=== PATIENT | male | born 1960 | race Caucasian/White ===

== ENCOUNTER 2018-09-02 14:55 | Outpatient (CLI) | payer BC, SELFPAY ==
--- NOTE | 2018-09-02 15:19 | DI.RAD_ITS ---
SYMPTOMS/DIAGNOSIS: CHEST PAIN X A COUPLE OF DAYS, R07.9, EXERTIONAL DYSPNEA, R06.09 CHEST X-RAY, PA AND LATERAL: No priors. The heart is normal in size. The lungs are clear. The mediastinal structures and pleura appear intact. IMPRESSION: Normal chest.
[2018-09-02 15:39] LABS: NT-proBNP 47 pg/mL
[2018-09-02 15:40] LABS: Troponin I < 0.02 ng/mL (0.00-0.06)
[2018-09-02 15:49] LABS: D-Dimer 122 ng/mlFEU (<500)
== END 2018-09-02 15:15 ==
PROVIDERS: PCP Nurse Practitioner; Visit Provider Nurse Practitioner
DX: R07.9 Chest pain, unspecified (principal); R06.09 Other forms of dyspnea
CPT/HCPCS: 36415; 71046; 83880; 84484; 85379

== ENCOUNTER 2018-09-09 00:32 | Outpatient (CLI) | payer BC, SELFPAY ==
--- NOTE | 2018-09-09 09:00 | MERGE_ITS ---
*[facility]* * Cardiology* [address] [place] [address] Date of study: 09/09/2018 Transthoracic Echocardiography M-mode, complete 2D, complete spectral Doppler, and color Doppler *STUDY CONCLUSIONS* Summary: 1. Left ventricle: The cavity size was normal. Wall thickness was normal. Systolic function was normal. The estimated ejection fraction was 55-60%. Wall motion was normal; there were no regional wall motion abnormalities. 2. Right ventricle: The cavity size was normal. Systolic function was normal. 3. Inferior vena cava: The vessel was patent and normal in size. The respirophasic diameter changes were in the normal range (greater than or equal to 50%), consistent with normal central venous pressure. *PATIENT PRESENTATION* Height: 188cm ((74in) ) S/D Pressure: 140 / 81 Weight: 103kg ((226.5lb) ) BSA: 2.34m^2 Test start time: 09:00 AM. Test stop time: 10:00 AM. PERFORMING [facility] ETHICS MANAGER RT Tim (Joel)(CT), RDCS ORDERING Ashley Yost REFERRING Ashley Yost *PROCEDURE DATA* Procedure information: The patient was identified by two identifiers. This study was interpreted by [facility] Cardiology. Pertinent images and digital data are archived for permanent storage and are available for subsequent review. No prior study was available for comparison. Study status: Routine. Transthoracic echocardiography. M-mode, complete 2D, complete spectral Doppler, and color Doppler. A Transthoracic Echocardiogram was performed. Scanning was performed from the parasternal, apical, subcostal, and suprasternal notch acoustic windows. Images were obtained using an [id number] cardiac ultrasound machine. Image quality was adequate. Study completion: The patient tolerated the procedure well. There were no complications. History: PMH: Dyspnea on exertion. chest pain. *CARDIAC ANATOMY* Left ventricle: The cavity size was normal. Wall thickness was normal. Systolic function was normal. The estimated ejection fraction was 55-60%. Wall motion was normal; there were no regional wall motion abnormalities. Aortic valve: Trileaflet; normal thickness leaflets. Mobility was not restricted. Doppler: Transvalvular velocity was within the normal range. There was no stenosis. There was no significant regurgitation. VTI ratio of LVOT to aortic valve: 0.71. Valve area (VTI): 2.6cm^2. Indexed valve area (VTI): 1.1cm^2/m^2. Peak velocity ratio of LVOT to aortic valve: 0.75. Valve area (Vmax): 2.7cm^2. Indexed valve area (Vmax): 1.2cm^2/m^2. Mean velocity ratio of LVOT to aortic valve: 0.71. Valve area (Vmean): 2.6cm^2. Indexed valve area (Vmean): 1.1cm^2/m^2. Mean gradient (S): 4.5mm Hg. Peak gradient (S): 7.5mm Hg. Aorta: Aortic root: The aortic root was normal in size. Ascending aorta: The ascending aorta was normal in size. Mitral valve: Mildly thickened leaflets. Mobility was not restricted. Doppler: Transvalvular velocity was within the normal range. There was no evidence for stenosis. There was mild regurgitation. Valve area by pressure half-time: 4cm^2. Indexed valve area by pressure half-time: 1.7cm^2/m^2. Left atrium: The atrium was at the upper limits of normal in size. Right ventricle: The cavity size was normal. Systolic function was normal. Pulmonic valve: The pulmonary valve appears to be grossly normal. Doppler: Transvalvular velocity was within the normal range. There was no evidence for stenosis. There was mild regurgitation. Tricuspid valve: Structurally normal valve. Doppler: Transvalvular velocity was within the normal range. There was no evidence for stenosis. There was mild regurgitation. Pulmonary artery: The main pulmonary artery was normal-sized. Pulmonary systolic pressure was within the normal range, in the range of 25mm Hg to 30mm Hg. Right atrium: The atrium was normal in size. Pericardium: There was no pericardial effusion. Systemic veins: Inferior vena cava: Well visualized. The vessel was patent and normal in size. The respirophasic diameter changes were in the normal range (greater than or equal to 50%), consistent with normal central venous pressure. Baseline ECG: Bradycardia. Measurements Left ventricle Value Reference LV ID, ED, PLAX 5.4 cm 3.5 - 6.0 LV ID, ES, PLAX 3.5 cm 2.1 - 4.0 LV PW thickness, ED, PLAX 1.0 cm LV end-diastolic volume, 1-p A2C 94 ml LV ejection fraction, 1-p A2C 65 % LV end-diastolic volume, 1-p A4C 97 ml LV ejection fraction, 1-p A4C 55 % LV e', lateral 0.127 m/sec LV E/e', lateral 5 LV e', medial 0.09 m/sec LV E/e', medial 8 LV e', average 0.109 m/sec LV E/e', average 6 Ventricular septum Value Reference IVS thickness, ED, PLAX 0.9 cm LVOT Value Reference LVOT ID, A-P 2.2 cm LVOT area 3.6 cm^2 LVOT peak velocity, S 1.03 m/sec LVOT mean velocity, S 0.73 m/sec LVOT VTI, S 25.6 cm LVOT peak gradient, S 4.3 mm Hg LVOT mean gradient, S 2.4 mm Hg Stroke volume (SV), LVOT DP 93 ml Stroke index (SV/bsa), LVOT DP 40 ml/m^2 Aortic valve Value Reference Aortic valve peak velocity, S 1.4 m/sec Aortic valve mean velocity, S 1.03 m/sec Aortic valve VTI, S 36.0 cm Aortic mean gradient, S 4.5 mm Hg Aortic peak gradient, S 7.5 mm Hg VTI ratio, LVOT/AV 0.71 Aortic valve area, VTI 2.6 cm^2 Velocity ratio, peak, LVOT/AV 0.75 Aortic valve area, peak velocity 2.7 cm^2 Velocity ratio, mean, LVOT/AV 0.71 Aortic valve area, mean velocity 2.6 cm^2 Aortic valve area/bsa, mean velocity 1.1 cm^2/m^2 Aorta Value Reference Aortic root ID, ED 3.6 cm Ascending aorta ID, A-P, S 3.5 cm Left atrium Value Reference LA ID, A-P, ES 3.9 cm LA ID/bsa, A-P 1.6 cm/m^2 <=2.2 LA area, ES, A4C (H) 24.1 cm^2 8.8 - 23.4 LA area, ES, A2C 21 cm^2 LA volume/bsa, ES, 1-p A4C 34 ml/m^2 LA volume, ES, 2-p 71 ml LA volume/bsa, ES, 2-p 31 ml/m^2 LA/aortic root ratio 1.07 Mitral valve Value Reference Mitral E-wave peak velocity 0.69 m/sec Mitral A-wave peak velocity 0.51 m/sec Mitral deceleration time 189 ms 150 - 230 Mitral pressure half-time 55 ms Mitral E/A ratio, peak 1.36 Mitral valve area, PHT, DP 4 cm^2 Pulmonary veins Value Reference Pulmonary vein peak velocity, S 0.83 m/sec Pulmonary vein peak velocity, D 0.54 m/sec Pulmonary vein velocity ratio, peak, 1.53 S/D Pulmonary vein A-wave reversal peak 0.31 m/sec velocity Pulmonary vein A-wave reversal 204 ms duration Tricuspid valve Value Reference Tricuspid regurg peak velocity 2.9 m/sec Tricuspid peak RV-RA gradient 33.8 mm Hg Right atrium Value Reference RA area, ES, A4C 16.1 cm^2 8.3 - 19.5 Legend: (L) and (H) josias values outside specified reference range. I have personally reviewed the images and have reviewed and edited the reported findings. Electronically signed by Sonido Crabtree 09/09/2018 10:42
--- NOTE | 2018-09-09 10:30 | ETT_ITS ---
*[facility]* *[facility]* [address] [place] [address] Stress Electrocardiography Kendrick protocol Date of study: 09/09/2018 *PATIENT PRESENTATION* Height: 188cm (74in) Blood Pressure: Weight: 103.2kg (227lb) BSA: 2.34m^2 Referring physician: Ashley Yost Ordering physician: Ashley Yost Impressions: Normal study after maximal exercise. Summary: 1. Stress: The target heart rate was achieved. Indication: R07.9 R06.09. History: REASON FOR TESTING: INCREASED SHORTNESS OF BREATH WITH ACTIVITY OVER THE LAST 6 MONTHS AND 2 EPISODES CHEST PAINS SINCE . WHILE DRIVING HOME FROM WORK PATIENT EXPERIENCED TREMENDOUS CHEST PRESSURE, 6 OUT OF 10, HE DESCRIBES RADIATING FROM ABDOMEN TO UPPER NECK AREA AND DOWN TO HIS LEFT SHOULDER. CHEST PRESSURE OCCURED AGAIN A WEEK AND A HALF LATER THIS TIME IT HAD WOKEN HIM FROM SLEEP. BOTH EPISODES LASTED APPOXIMEATELY 15-20 MINUTES. PAST MEDICAL HISTORY: HYPERTENSION AND HYPERLIPIDEMIA. FAMILY HISTORY: BROTHER HYPERTENSION, FATHER HYPERTENSION. SMOKING STATUS: NEVER. EXERCISE ROUTINE: DAILY ADL'S. Risk factors: Family history of coronary artery disease. Hypertension. Dyslipidemia. Cholesterol: 207mg/dl. HDL: 38mg/dl. LDL: 118mg/dl. Triglycerides: 308mg/dl. ALLERGIES: CANTALOUPE AND PINEAPPLE. MEDICATIONS: METOPROLOL TARTRATE 100 MG BID, ADVIL 200 MG PRN, METAMUCIL 0.52 GM BID, MULTIPLE VITAMIN DAILY, LISINOPRIL 10 MG DAILY. Protocol: Kendrick protocol. Baseline ECG: SINUS BRADYCARDIA. HEART RATE 59 BPM. Stress protocol: + +---+ + !Stage !HR !BP (mmHg) ! + +---+ + !Baseline supine !59 !140/84 (103) ! + +---+ + !Baseline standing !59 !130/90 (103) ! + +---+ + !Stage I; 1.7mph, 10degrees; 3 min !84 !148/78 (101) ! + +---+ + !Stage II; 2.5mph, 12degrees; 3 min !104!150/80 (103) ! + +---+ + !Stage III; 3.4mph, 14degrees; 3 min!113!190/100 (130)! + +---+ + !Recovery; 1 min !115!210/90 (130) ! + +---+ + !Recovery; 3 min !83 !178/88 (118) ! + +---+ + !Recovery; 6 min !85 !140/88 (105) ! + +---+ + * Stress results: Maximal heart rate during stress was 143bpm (88% of maximal predicted heart rate). The maximal predicted heart rate was 162bpm. The target heart rate was achieved. The rate-pressure product for the peak heart rate and blood pressure was 70184kx Hg/min. Stress ECG: STRESS TEST ENDED IN 9 MINUTES 37 SECONDS DUE TO FATIGUE. NORMAL HEART RATE AND BLOOD PRESSURE RESPONSE TO EXERCISE. MAX HR = 143 % OF TARGET = 88 RARE PVC. APPROXIMATE MET'S ACHIEVED = 11.18 NO ANGINA. NO SIGNIFICANT ST SEGMENT CHANGES. FUNCTIONAL CAPACITY: AVERAGE CAPACITY. Study data: Sonido Crabtree MD supervised and was readily available during the procedure. This study was interpreted by [facility] Cardiology. Study status: Routine. Consent: The risks, benefits, and alternatives to the procedure were explained to the patient and informed consent was obtained. Procedure: Initial setup. A baseline ECG was recorded. Surface ECG leads and manual cuff blood pressure measurements were monitored. Heart sounds: Normal. Lung sounds: Normal. Treadmill exercise testing was performed using the Kendrick protocol. Study completion: The patient tolerated the procedure well and was discharged from the lab. Discharge: The patient left the laboratory in stable condition. Birthdate: Patient birthdate: 1960. Sex: Gender: male. Study date: Study date: 09/09/2018. Study time: 10:30 AM. Signature Documentation: The Stress ECG portion of this study was interpreted by Sonido Crabtree MD. Electronically signed by Sonido Crabtree 09/09/2018 12:03
== END 2018-09-09 00:52 ==
PROVIDERS: PCP Nurse Practitioner; Visit Provider Nurse Practitioner
DX: R07.9 Chest pain, unspecified (principal); R06.09 Other forms of dyspnea; I10 Essential (primary) hypertension; E78.5 Hyperlipidemia, unspecified
CPT/HCPCS: 93017; 93306

== ENCOUNTER 2020-06-27 10:10 | Outpatient (REF) | payer BC, SELFPAY ==
[2020-06-27 21:59] LABS: HCT 48.3 % (40.0-50.0); HGB 17.1 g/dL (13.5-17.5); MCH 32.3 pg (27.0-33.0); MCHC 35.4 % (32.0-36.0); MCV 91.1 fL (80-95); MPV 11.9 fL (8.0-11.0); Platelet Count 212 10^3/uL (130-400); RDW 12.3 % (11.8-14.1); WBC 6.85 10^3/uL (4.4-10.8)
[2020-06-27 22:38] LABS: ALT 51 U/L (16-63); AST 27 U/L (15-37); Albumin 4.7 g/dL (3.4-5.0); Alkaline Phosphatase 83 U/L (46-116); Anion Gap 7.9 mmol/L (3-11); BUN 21 mg/dL (7-18); Bilirubin, Total 1.4 mg/dL (0.2-1.0); CO2 29.1 mmol/L (21.0-32.0); CREATININE 1.03 mg/dL (0.70-1.30); Calcium 9.6 mg/dL (8.5-10.1); Chloride 103 mmol/L (98-107); Glucose 102 mg/dL (74-106); Magnesium 2.1 mg/dL (1.8-2.4); Potassium 4.2 mmol/L (3.5-5.1); Sodium 140 mmol/L (136-145); Total Protein 7.5 g/dL (6.4-8.2)
[2020-07-04 16:24] LABS: PSA, Screening 1.4 ng/mL (0-4.5)
== END 2020-06-27 10:30 ==
LOC: NCHCN 10:10
PROVIDERS: PCP Family Medicine; Visit Provider Family Medicine
DX: E78.5 Hyperlipidemia, unspecified (principal); I10 Essential (primary) hypertension; I25.10 Atherosclerotic heart disease of native coronary artery without angina pectoris
CPT/HCPCS: 80053; 84153; 85027; 83735

== ENCOUNTER 2020-10-16 02:56 | Outpatient (CLI) | payer BC, SELFPAY ==
[2020-10-17 13:26] LABS: COVID-19 RT-PCR UVMMC Result Negative (Negative)
== END 2020-10-16 02:57 | disposition home or self-care (01) ==
LOC: LBO 02:56
PROVIDERS: PCP Family Medicine; Visit Provider Surgery
DX: Z20.822 Contact with and (suspected) exposure to COVID-19 (principal); Z01.818 Encounter for other preprocedural examination
CPT/HCPCS: U0003

== ENCOUNTER 2020-10-19 08:15 | Day surgery (SDC) | payer BC, SELFPAY ==
[2020-10-19 08:39] VITALS: BP 130/79; PULSE 56; RESP 16; TEMP 36.3; O2SAT 99
[2020-10-19] MEDS: Lactated Ringers 1,000 ML 80 ML IV (09:00)
--- NOTE | 2020-10-19 09:58 | W.PM.DSUDISC ---
Discharge Plan Disposition Patient Disposition: HOME Condition: Good Discharge Details Reason For Visit: colon scope and hemorrhoidal banding Attending Provider: Allie Schwartz Primary Care Provider: Sloane Brunson Home Meds and New Rx's Prescriptions: Continued prednisolone acetate (PF) 1 % drops,suspension 1 drp ophthalmic (eye) BID RF: 0 Centrum Silver Men 300-600-300 mcg tablet 1 tab PO DAILY RF: 0 losartan 50 mg tablet 50 mg PO DAILY RF: 0 psyllium husk [Metamucil] 0.52 gram capsule 0.52 g PO DAILY RF: 0 amlodipine 5 mg tablet 10 mg PO DAILY RF: 0 metoprolol tartrate 100 MG tablet 100 mg PO BID RF: 0 Discontinued aspirin [Adult Aspirin Regimen] 81 mg tablet,delayed release (DR/EC) 81 mg PO DAILY RF: 0 ibuprofen [Advil] 200 mg tablet 800 mg PO Q6H PRNRF: 0 Discharge Instructions Additional Instructions: Findings:scope- normal. x2 hemorrhoids banded. Repeat C. sope in 10 yrs time if still healthy for anesthesia. Follow up: Repeat C. scope in 10 yrs time if still healthy for anesthesia. Please call if you develop: fevers >101.5 Nausea or Vomiting Abdominal pain that is not transient DAY SURGERY UNIT POST COLONOSCOPY INSTRUCTIONS 1. Because there will be medication in your system for the next 24 hours, you may feel a little sleepy. Your coordination will be affected. Therefore: a. Do not drive or operate dangerous equipment for 24 hours. b. Do not drink alcohol beverages for 24 hours (not even beer). c. Plan to go home and rest for the day. 2. Generally there are no restrictions on your activity after a day or so has gone by, but you may feel a bit fatigued for a few days. 3 After you arrive home you may have a light meal and return to a normal diet as you can tolerate it without feeling sick to your stomach. 4. After surgery, you may feel pain or discomfort. This should be only transient, but if it persists please contact your doctor. 5. If there are any questions regarding the findings of your procedure, please feel free to contact your doctor. 6. If you are unable to contact your doctor with a problem, contact the hospital at [phone]. 7. Continue all your regular medications unless directed otherwise. I understand the above instructions and have no questions. Signature of Patient or Responsible Adult Escort Date/Time Name of Responsible Adult Escort Signature of Nurse Date/Time Home Care Instructions after Rectal Surgery Pain control: Ibuprofen 600mg 6hrs (take w/ food. Do not take on an empty stomach) and Tylenol 1000mg by mouth (ibuprofen 400-600mg) every 8 hours. Do not take if you have ulcers or sensitivity to aspirin. Do not take Tylenol if you have hepatitis or liver failure. Alternate the Tylenol and ibuprofen. Take pain meds continuously for the first 72hrs. After 72hrs, you can take as needed if you are having pain. How to prevent constipation: The first bowel movement after surgery will be painful. Do not let yourself get constipated. Stay on a stool softener for the first two weeks after surgery. It is recommended that you use a fiber supplement (Metamucil, Citrucel) daily (1 tablespoon in 8 oz of water). If you do not have a bowel movement daily, use Milk of Magnesia or Miralax. You may have bleeding or drainage after rectal surgery; especially when you move your bowels. Use a sanitary napkin to collect the discharge. If you are passing large clots or having to change the pad more than every 4 hours, call the clinic or go to the ER. You may experience spasms in the rectal muscles. This is normal after surgery and last for about two weeks. They can become more intense with bowel movements. The best remedy is to soak in a bathtub of plain warm water- no Epsom salts, essential oil or soap. It takes about 10 minutes further the spasm to stop. You may want to do this after BM as well. It is ok to shower. Avoid soap on the surgical area. Use a pillow to sit on. Follow a mild bland diet. Avoid alcohol, spicy food, citrus, and tomatoes. Avoid strenuous activity (running, jogging, and power walking, swimming, weight lifting) for two weeks. No lifting over 20 pounds for 2 weeks. Activity:: see above Diet:: see above Discharge Orders Discharge Orders: Discharge Order (Routine); Ordered 10/19/20 Ordered By: Allie Schwartz DS: Diagnosis Discharge Diagnosis (1) Screening for colon cancer: Status: Acute (2) Internal hemorrhoid, bleeding: Status: Acute
--- NOTE | 2020-10-19 10:06 | W.COLOREPORT ---
Date of service: 10/19/20 Time of Service: 10:06 Colonoscopy Report Date of procedure: 10/19/20 Pre-op diagnosis general: CRC screen/rectal bleeding/hemorrhoids Post-op diagnosis procedure note: same Procedure: hemorrhoidal banding x2 Estimated blood loss (mL): 1 Pathology: none sent Complications: None Disposition: same day Prep: Miralax/Dulcolax Retraction Time: 8 mins Procedure Description: After informed consent was obtained the patient was taken to the procedure room and placed in a left decubitous position. Monitors were applied and a time out was done. The patients name, date of , procedure, allergies to medications and metal in their body was reviewed. The patient was then sedated. Once sedated and comfortable a rectal exam was done. External exam was normal. Internal exam revealed a normal sphincter tone and no palpable masses. The scope was then introduced and retrofelexed. Grade2 x2 complexes internal hemorrhoids were identified. The scope was then advanced to the cecum w/out difficulty. The TI and appendiceal orifice were identified. The prep was good. The scope was then slowly retracted over 8mins minutes back into the rectum. There are no polyps/AVM's/Diverticula present. He has x2 GradeII internal hemordoids. These are successfully banded The scope was removed and the patient was woken up and taken back to Same day surgery in stable condition. The patient tolerated the procedure well and there were no immediate complications. Follow up: The patient should follow up in 10 years unless they develop changes in bowel habits or other new gastrointestinal complaints.
[2020-10-19 10:28] VITALS: BP 111/68; PULSE 54; RESP 16; TEMP 36.5; O2SAT 99
== END 2020-10-19 10:42 | disposition home or self-care (01) ==
PROVIDERS: PCP Family Medicine; Visit Provider Surgery
PROC: 0DJD8ZZ Inspection of Lower Intestinal Tract, Via Natural or Artificial Opening Endoscopic (ICD-10-PCS; CPT 45378; principal; 2020-10-19 09:15)
DX: Z12.11 Encounter for screening for malignant neoplasm of colon (principal); K64.8 Other hemorrhoids; I25.10 Atherosclerotic heart disease of native coronary artery without angina pectoris; I10 Essential (primary) hypertension; E78.5 Hyperlipidemia, unspecified
CPT/HCPCS: 46221; 45378; J2001

== ENCOUNTER 2021-09-06 10:40 | Outpatient (REF) | payer BC, SELFPAY ==
[2021-09-06 14:20] LABS: ALT 60 U/L (16-63); AST 27 U/L (15-37); Albumin 4.5 g/dL (3.4-5.0); Alkaline Phosphatase 80 U/L (46-116); Anion Gap 9.9 mmol/L (3-11); BUN 17 mg/dL (7-18); Bilirubin, Total 1.7 mg/dL (0.2-1.0); CO2 28.1 mmol/L (21.0-32.0); Calcium 9.1 mg/dL (8.5-10.1); Calculated LDL 133 mg/dL (<100); Chloride 100 mmol/L (98-107); Cholesterol 234 mg/dL (<200); Glucose 94 mg/dL (74-106); HDL Cholesterol 40 mg/dL (40-60); Potassium 4.2 mmol/L (3.5-5.1); Sodium 138 mmol/L (136-145); Total Protein 7.8 g/dL (6.4-8.2); Triglyceride 309 mg/dL (<150)
== END 2021-09-06 10:41 | disposition home or self-care (01) ==
LOC: NCHCN 10:40
PROVIDERS: PCP Family Medicine; Visit Provider Family Medicine
DX: Z00.00 Encounter for general adult medical examination without abnormal findings (principal)
CPT/HCPCS: 80053; 80061

== ENCOUNTER 2023-02-23 08:22 | Outpatient (REF) | payer BC, SELFPAY ==
[2023-02-23 17:45] LABS: ALT 43 U/L (16-63); AST 25 U/L (15-37); Albumin 4.1 g/dL (3.4-5.0); Alkaline Phosphatase 92 U/L (46-116); Anion Gap 7.9 mmol/L (3-11); BUN 13 mg/dL (7-18); Bilirubin, Total 1.1 mg/dL (0.2-1.0); CO2 30.1 mmol/L (21.0-32.0); Calcium 9.2 mg/dL (8.5-10.1); Chloride 105 mmol/L (98-107); Cholesterol 226 mg/dL (<200); Glucose 101 mg/dL (74-106); HDL Cholesterol 41 mg/dL (40-60); Potassium 4.7 mmol/L (3.5-5.1); Sodium 143 mmol/L (136-145); Total Protein 7.3 g/dL (6.4-8.2); Triglyceride 405 mg/dL (<150)
[2023-02-23 19:29] LABS: LDL CHOLESTEROL 110 mg/dL (<100)
== END 2023-02-23 08:23 | disposition home or self-care (01) ==
LOC: NCHCN 08:22
PROVIDERS: PCP Family Medicine; Visit Provider Family Medicine
DX: Z00.00 Encounter for general adult medical examination without abnormal findings (principal); E78.5 Hyperlipidemia, unspecified; I10 Essential (primary) hypertension; I25.10 Atherosclerotic heart disease of native coronary artery without angina pectoris
CPT/HCPCS: 80053; 80061; 83721

== ENCOUNTER 2024-02-22 09:44 | Outpatient (REF) | payer BC, SELFPAY ==
[2024-02-22 16:00] LABS: ALT 45 U/L (16-63); AST 22 U/L (15-37); Albumin 4.3 g/dL (3.4-5.0); Alkaline Phosphatase 81 U/L (46-116); Anion Gap 6.5 mmol/L (3-11); BUN 17 mg/dL (7-18); Bilirubin, Total 1.27 mg/dL (0.2-1.0); CO2 30.5 mmol/L (21.0-32.0); Calcium 9.1 mg/dL (8.5-10.1); Calculated LDL 96 mg/dL (<100); Chloride 105 mmol/L (98-107); Cholesterol 191 mg/dL (<200); Estimated GFR 84.57 (mL/min/1.73m2); Glucose 99 mg/dL (74-106); HDL Cholesterol 46 mg/dL (40-60); Potassium 4.7 mmol/L (3.5-5.1); Sodium 142 mmol/L (136-145); Total Protein 7.3 g/dL (6.4-8.2); Triglyceride 249 mg/dL (<150); Vitamin D 25 Total 25.6 ng/mL (30-100)
== END 2024-02-22 09:45 | disposition home or self-care (01) ==
LOC: NCHCN 09:44
PROVIDERS: PCP Family Medicine; Visit Provider Family Medicine
DX: Z00.00 Encounter for general adult medical examination without abnormal findings (principal); E78.5 Hyperlipidemia, unspecified; I10 Essential (primary) hypertension; E55.9 Vitamin D deficiency, unspecified
CPT/HCPCS: 80053; 80061; 82306

== ENCOUNTER 2025-02-28 19:42 | Outpatient (REF) | payer MEDICARE, BC, SELFPAY ==
[2025-02-28 16:49] LABS: ALT 51 U/L (16-63); AST 29 U/L (15-37); Albumin 4.3 g/dL (3.4-5.0); Alkaline Phosphatase 83 U/L (46-116); Anion Gap 7.1 mmol/L (3-11); BUN 19 mg/dL (7-18); Bilirubin, Total 1.4 mg/dL (0.2-1.0); CO2 29.9 mmol/L (21.0-32.0); Calcium 8.9 mg/dL (8.5-10.1); Calculated LDL 104 mg/dL (<100); Chloride 105 mmol/L (98-107); Cholesterol 196 mg/dL (<200); Estimated GFR 94.78 (mL/min/1.73m2); Glucose 96 mg/dL (74-106); HDL Cholesterol 43 mg/dL (>or=40); Potassium 4.2 mmol/L (3.5-5.1); Sodium 142 mmol/L (136-145); Total Protein 7.1 g/dL (6.4-8.2); Triglyceride 247 mg/dL (<150); Vitamin D 25 Total 29 ng/mL (30-100)
== END 2025-02-28 19:43 | disposition home or self-care (01) ==
LOC: NCHCN 19:42
PROVIDERS: PCP Family Medicine; Visit Provider Family Medicine
DX: I10 Essential (primary) hypertension (principal); E78.5 Hyperlipidemia, unspecified; E55.9 Vitamin D deficiency, unspecified
CPT/HCPCS: 80053; 80061; 82306

== ENCOUNTER → 2025-05-24 08:50 | Outpatient (BNVA) | payer MEDICARE, BC, SELFPAY | PROVIDERS: PCP Family Medicine; Referring Provider Family Medicine; Visit Provider Surgery | DX: K42.9 Umbilical hernia without obstruction or gangrene (principal); R10.33 Periumbilical pain | CPT/HCPCS: 99213 ==

== ENCOUNTER 2025-06-19 06:13 | Day surgery (SDC) | payer MEDICARE, BC, SELFPAY ==
[2025-06-19] VITALS (18 sets, daily range): BP systolic 104–153; BP diastolic 59–78; PULSE 50–60; RESP 8–16; TEMP 36.1–36.7; O2SAT 92–97; BMI 28.5
[2025-06-19] MEDS: Lactated Ringers 1,000 ML 80 ML IV (06:43)
--- NOTE | 2025-06-19 07:30 | ANES.PREOP_ITS ---
General Info Date of Service Date Performed: 06/19/25 Height: 6 ft 1.5 in Weight: 99.7 kg Body Mass Index (BMI): 28.5 Surgical Procedure: Operation Date: 06/19/25 07:40 Proposed Procedure Side Surgeon p Hernia Umbilical Laparoscopic w/Mesh Zohra Morrow MD Meds Allergies and Home Medications Allergies Allergy/AdvReac Type Severity Reaction Status Date / Time cantaloupe Allergy Intermediate lip Verified 06/19/25 06:21 tingling scratchy throat atorvastatin AdvReac Intermediate myalgias Verified 06/19/25 06:21 lisinopril AdvReac Intermediate cough Verified 06/19/25 06:21 pineapple extract Allergy Severe lip Uncoded 06/19/25 06:21 tingling,scratchy throat Home Medication ?Medication ?Instructions ?Recorded metoprolol tartrate 100 mg tablet 100 mg PO BID losartan 50 mg tablet 50 mg PO DAILY 08/15/20 psyllium husk 0.52 gram capsule 0.52 g PO DAILY (Metamucil) amlodipine 5 mg tablet 10 mg PO DAILY 10/04/20 xulpoxmi-dh-pfxnk 300 mcg-K 60 1 tab PO DAILY 10/04/20 mcg-lycop 600 mcg-lutein 300 mcg tablet (Centrum Silver Men) Current Visit Medications: Current Medications Generic Name Dose Route Start Last Admin Trade Name Freq PRN Reason Stop Dose Admin Ringer's Solution 1,000 mls @ 80 mls/hr 06/19/25 06:00 06/19/25 06:43 IV 07/16/25 23:59 80 mls/hr INFUSION ANISH Administration Cefazolin Sodium/Dextrose 2 gm in 50 mls @ 100 mls/hr 06/19/25 06:00 Ancef Duplex IVPB 07/16/25 23:59 PREOP ANISH IV Miscellaneous Supplies 1 each 06/19/25 06:00 Iv Access IV 07/16/25 23:59 DIRECTED ANISH Sodium Chloride 0 ml 06/19/25 06:00 Normal Saline Flush 10 Ml Syr IV 07/16/25 23:59 PRN PRN Sodium Chloride 0 ml 06/19/25 06:00 Normal Saline 10 Ml Vial IJ 07/16/25 23:59 DIRECTED PRN Sterile Water 0 ml 06/19/25 06:00 Water,Injection,Sterile 10 Ml Vial IJ 07/16/25 23:59 DIRECTED PRN PFSH Active Problems Active Problems: Problem Status Onset Code Internal hemorrhoid, bleeding Acute K64.8 Screening for colon cancer Acute Z12.11 Umbilical hernia Acute K42.9 Medical History Medical History Osteoarthritis Rhegmatogenous retinal detachment Vitamin D deficiency History of IBS Hemorrhoids History of rectal bleeding Allergic rhinitis Hyperlipidemia Hypertension Coronary artery disease Degenerative lumbar disc Surgical History Surgical History History of colonoscopy (~10/19/20) with hemorrhoid banding H/O cardiac catheterization (~2018) 2018 [facility] 30% blockage in LAD Pt. states he has been discharged from f/u care History of detached retina repair (~2014) Left (2014) at [facility] Right (2020) [facility] History of colonoscopy (~02/11/10) polypectomy [facility] Hx IBS, Rectal bleeding Tobacco Smoking/Tobacco Use Status: Never Alcohol Alcohol Intake: current Alcohol intake frequency: 0-2 drinks per day Substance Use Substance use: Never Substance use type: does not use Vital Signs and Lab Results Vital Signs Most Recent Vital Signs in EMR: Most Recent Vital Signs Temp Pulse Resp BP Pulse Ox 36.7 C 58 L 16 153/78 H 97 06/19/25 06:21 06/19/25 06:21 06/19/25 06:21 06/19/25 06:21 06/19/25 06:21 Anesthesia Assessment and Plan Anesthesia History Personal History: No History of Anesthesia Complications Family History: No Family History of Anesthesia Complications Exercise Tolerance Exercise Tolerance: Metabolic Equivalents>4 Pertinent Negatives Pertinent Negatives: No Symptoms of GERD Cardiac & Pulmonary Exam Cardiac Exam: Normal S1/S2 Heart Sounds Pulmonary Exam: Clear Bilateral Breath Sounds Implantable Cardiac Device Does patient have a Pacemaker or an ICD?: No Airway Exam Known Difficult Airway: No Mallampati Class: 2 Mouth Opening: Normal (> 3cm) Thyromental Distance: Greater than 3 cm Neck Range of Motion: Full ROM Neck Circumference: Normal Teeth Condition: Normal Dentition ASA Classification ASA Score: ASA 2 Emergency Case?: No NPO Status NPO Status: NPO Clears >2 hours, Solids >8 hours Anesthesia Plan Resuscitation Status: Full Code Anesthesia Technique: General Anesthesia Airway Planned: Endotracheal Tube Monitors Used: Standard Monitors and SedLine
--- NOTE | 2025-06-19 07:32 | W.PM.DSUDISC ---
Date of service: 06/19/25 Discharge Plan Disposition Patient Disposition: Home Condition: Stable Discharge Details Attending Provider: Zohra Morrow Primary Care Provider: Sloane Brunson Home Meds and New Rx's Prescriptions: New hydrocodone-acetaminophen 5-325 mg tablet 1 tab PO Q6H PRN (Reason: pain) Qty: 16 0RF ibuprofen 800 mg tablet 800 mg PO Q8H PRNQty: 21 0RF Continued Centrum Silver Men 300-600-300 mcg tablet 1 tab PO DAILY losartan 50 mg tablet 50 mg PO DAILY psyllium husk [Metamucil] 0.52 gram capsule 0.52 g PO DAILY amlodipine 5 mg tablet 10 mg PO DAILY metoprolol tartrate 100 MG tablet 100 mg PO BID Discharge Instructions Additional Instructions: Shower in 24 hours. Wash gently over skin glue with soapy hands, rinse, pat dry. Don't peel glue or submerge incisions under water. Do not clean the glue with rubbing alcohol or any solvents beyond your regular soap/body wash and water. The glue will start to come off on its own in about 2 weeks. Leave the clear dressing and gauze on the belly button for 5 days. Then peel it off, remove the gauze, and wash the belly button. There is a small incision w glue on it inside the belly button. The gauze dressing helps to flatten the bellybutton back down. Ok to walk, climb stairs, and resume normal activities of daily living. Do not lift/push/pull more than 20lb for 4 weeks. Do not exercise until cleared by surgeon in office. Wear abdominal binder for comfort. Monitor yourself for constipation during recovery. Add a stool softener or laxative if no BM within 36 hours. Call or return for fever or incisional problems Discharge Orders Discharge Orders: Discharge Order (Routine); Ordered 06/19/25 Ordered By: Zohra Morrow DS: Diagnosis Discharge Diagnosis (1) Umbilical hernia: Status: Acute
[2025-06-19] MEDS: ceFAZolin 2 GM/50 ML BAG IVPB (07:52)
[2025-06-19] MEDS: Bupivacaine 0.5% Pres-Free W/EPI 30 ML VIAL (08:21)
--- NOTE | 2025-06-19 09:31 | W.PM.OP ---
Operative Note Operative Note PRE-OP DIAGNOSIS: Umbilical hernia Umbilical hernia PROCEDURE: Laparoscopic umbilical hernia repair with mesh SURGEON: Zohra Morrow WAREHOUSE ENGINEER: Zachery Duncan ANESTHESIA TYPE: Local By Surgeon and General LMA/ETT Refer to Anesthesia Record PATHOLOGY: none sent COMPLICATIONS: None Patient's condition: stable Implants: 4.[address] mesh Procedure Description: This is a 65-year-old patient who was seen in the office for umbilical hernia with symptoms. Repair was indicated. We discussed a laparoscopic approach to repairing the umbilical hernia. The procedure risks and benefits and alternatives and expectations were reviewed. Informed consent was obtained. The patient was transferred to the operating room on the day of surgery. He was placed supine on the operating table. SCDs were placed at all pressure points were padded appropriately. The abdomen was clipped prepped and draped in the usual sterile fashion and Ioban was used. Timeout was performed. Preoperative antibiotics were administered prophylactically. A Veress needle was used to access the abdominal cavity from the left upper quadrant. Saline drop test confirmed abdominal placement and the abdomen was insufflated to 15 mmHg. A 5 mm port was placed in the left lower quadrant using the Optiview method. 2 additional 5 mm ports were placed under direct visualization, 1 in the right abdomen and 1 in the left upper quadrant. No injury to the intra-abdominal organs was seen at the various site. The Veress needle was removed. The umbilical hernia was visualized and there was omentum adherent to the peritoneum around it. The contents were easily reduced with forceps and Ligasure device. LigaSure device was used to take down the peritoneal omental adhesions and freed the omentum from the defect. Graspers and LigaSure device were used to pull small fatty contents from within the hernia and to take down the hernia sac. The small fatty contents and sac were pulled from the abdomen and discarded the hernia defect was measured to be 3cm by 1.5cm. A suture passer was used to pass 0 Prolene suture for transfascial closure of the defect. A 4.[address] mesh was selected for the repair. Mesh placement was planned on the abdominal wall. Sutures were placed at the cardinal points on the mesh, 2-0 Prolene suture was used. The mesh was then rolled and introduced into the abdomen through the right sided abdominal port site. In the abdomen, the mesh was unrolled and positioned appropriately for fixation to the abdominal wall. Small punctures were made at premeasured sites on the anterior abdominal wall and a [employer] suture grasper was used to grab the Prolene suture tails and pulled them up through the muscle. This was done in all 4 cardinal points of the mesh through the abdominal wall. The mesh was tied down and secured. Next an absorbable tacker was used to tack the mesh to the peritoneum circumferentially. The mesh lay in good position over the hernia defect with generous overlap of the defect. The abdomen was desufflated after hemostasis was confirmed. The abdomen was washed and dried. The port sites were closed with 4-0 Monocryl suture in a subcuticular fashion. Skin glue was placed over the port sites and suture passer sites in veress site. Gauze and Tegaderm were placed over the umbilicus to help flatten it. All sponge and instrument counts were correct at the end of the case. The patient tolerated the procedure well. He extubated in the operating room and transferred to the recovery room in stable condition. No complications Date of Procedure: 06/19/25
[2025-06-19] MEDS: fentaNYL 100 MCG/2 ML VIAL IVP ×2 (09:55→10:03)
--- NOTE | 2025-06-19 10:33 | W.ANESPOSTOP ---
Postoperative Evaluation Date, Time and Location Date Performed: 06/19/25 Time Performed: 10:33 Patient Location: Day Surgery Unit Vital Signs Most Recent Imported Vital Signs: Most Recent Vital Signs Temp Pulse Resp BP Pulse Ox 36.1 C L 54 L 16 121/78 94 06/19/25 10:22 06/19/25 10:22 06/19/25 10:22 06/19/25 10:22 06/19/25 10:22 Pain Score Most Recent Pain Score: Most Recent Pain Score Pain Level 3 06/19/25 10:22 Assessment Mental Status: Awake (Alert & Oriented to Patient Baseline) Airway and Respiratory Function: Patent airway with normal (patient baseline) respiratory exam Cardiovascular Function: Hemodynamically Stable Hydration Status: Adequately Hydrated Nausea & Vomiting: No Nausea or Vomiting Pain: Pain is tolerable per patient Peripheral Nerve Block: Patient did not receive a nerve block
== END 2025-06-19 11:26 | disposition home or self-care (01) ==
PROVIDERS: PCP Family Medicine; Visit Provider Surgery
PROC: (CPT 49650; principal; 2025-06-19 07:30)
DX: K42.9 Umbilical hernia without obstruction or gangrene (principal)
CPT/HCPCS: 49593; C1781; J0131; J0690; J1100; J1885; J2003; J2405; J2704; J3010

== ENCOUNTER → 2025-07-05 09:21 | Outpatient (BNVA) | payer MEDICARE, BC, SELFPAY | PROVIDERS: PCP Family Medicine; Referring Provider Family Medicine; Visit Provider Surgery | DX: Z09 Encounter for follow-up examination after completed treatment for conditions other than malignant neoplasm (principal); K42.9 Umbilical hernia without obstruction or gangrene | CPT/HCPCS: 99213 ==